=== PATIENT | female | born 1980 | race Two or more races ===

== ENCOUNTER 2024-01-02 06:59 | Emergency (ER) | payer OTHER ==
[~2024-01-02] VITALS: Ht 165.1 cm; Wt 71.9 kg
[2024-01-02 07:40] VITALS: PULSE 85; RESP 20; O2SAT 100
[2024-01-02] MEDS: KETOROLAC TROMETH 30 MG/ML 1ML VIAL IV ONE (07:56)
[2024-01-02] MEDS: SODIUM CHLORIDE 0.9% 1,000 ML IVB ONE (07:56)
[2024-01-02 07:57] LABS: Urine Bacteria FEW /hpf (None Seen); Urine Blood 3+ /uL (Negative); Urine Clarity Clear (Clear); Urine Color Light-Yellow (Yellow); Urine Mucus FEW (None Seen); Urine Protein, UAD TRACE (Negative); Urine Specific Gravity 1.019 (1.001-1.035); Urine Urobilinogen Normal (Negative); Urine WBC 1 /hpf (0 - 5)
[2024-01-02 08:19] LABS: Basophils # (auto) 0 10 ^3/uL (0-0.2); Basophils % (auto) 0.2 % (0.0-2.0); Eosinophils # (auto) 0.1 10 ^3/uL (0-0.8); Eosinophils % (auto) 1.8 % (0.0-7.0); Hematocrit 34.3 % (36.0-46.0); Hemoglobin 10.9 g/dL (12.2-16.2); Lymphocytes # (auto) 0.8 10 ^3/uL (0.4-5.4); Lymphocytes % (auto) 14.5 % (10.0-50.0); Mean Corpuscular Hemoglobin 24.7 pg (28.0-32.0); Mean Corpuscular Hgb Conc. 31.8 g/dL (32.0-36.0); Mean Corpuscular Volume 77.5 fL (80.0-100.0); Monocytes # (auto) 0.4 10 ^3/uL (0-1.3); Monocytes % (auto) 6.7 % (0.0-12.0); Neutrophils # (auto) 4.1 10 ^3/uL (1.6-8.6); Neutrophils % (auto) 76.8 % (37.0-80.0); Nucleated Red Blood Cells % 0.1 %; Red Blood Cells 4.43 10^6/uL (4.0-5.20); Red Cell Distribution Width 17.8 % (11.8-14.3); White Blood Cell 5.4 10^3/uL (4.4-10.8)
[2024-01-02 08:37] LABS: Chloride 109 mmol/L (98-107); Potassium 3.9 mmol/L (3.5-5.1); Sodium 139 mmol/L (136-145)
[2024-01-02 08:38] LABS: Anion Gap 3 (5-15); Carbon Dioxide 27 mmol/L (20-30)
[2024-01-02 08:39] LABS: Calcium 9.2 mg/dL (8.7-10.4)
[2024-01-02] MEDS ORDERED: TRAM50TA2 PO (08:40)
[2024-01-02 08:44] LABS: BUN/Creatinine Ratio 17.4 (10.0-20.0); Blood Urea Nitrogen 12 mg/dL (9-23); Glucose 102 mg/dL (74-106)
[2024-01-02 09:35] VITALS: BP 129/77; PULSE 58; RESP 16; TEMP 97.7; O2SAT 100
== END 2024-01-02 09:37 | disposition home or self-care (01) ==
LOC: ER 06:59
DX: M79.18 Myalgia, other site (principal); R10.9 Unspecified abdominal pain; F17.210 Nicotine dependence, cigarettes, uncomplicated; F12.10 Cannabis abuse, uncomplicated
CPT/HCPCS: 36415; 74176; 80048; 81001; 85025; 96361; 96374; 99285; J1885; J7030